=== PATIENT | male | born 1940 | race Caucasian/White ===

== ENCOUNTER 2024-02-09 13:55 | Emergency (ER) | payer MEDICARE ==
[~2024-02-09] VITALS: Ht 171.4 cm; Wt 77.0 kg
[~2024-02-09 13:55] MED LIST: KEFLEX250 MG PO; ZESTRIL10 MG PO
[2024-02-09 14:40] VITALS: BP 136/84
[2024-02-09 14:47] VITALS: BP 130/70
[2024-02-09] MEDS ORDERED: Diph, Acellular Pertussis, Tet 0.5 ML/VIAL (Tdap) SDV IM ONE (14:50)
[2024-02-09 15:00] VITALS: BP 125/65
[2024-02-09 15:30] VITALS: BP 125/65
== END 2024-02-09 15:31 | disposition home or self-care (01) ==
LOC: ED 13:55
PROC: 0HQ0XZZ Repair Scalp Skin, External Approach (ICD-10-PCS; principal; 2024-02-09)
DX: S01.01XA Laceration without foreign body of scalp, initial encounter (principal); I10 Essential (primary) hypertension; W22.09XA Striking against other stationary object, initial encounter